=== PATIENT | male | born 1970 | race Caucasian/White ===

== ENCOUNTER 2018-11-10 14:20 | Emergency (ER) | payer BC ==
[~2018-11-10] VITALS: Ht 193 cm; Wt 137.7 kg
[2018-11-10 14:20] VITALS: BP 145/87
--- NOTE | 2018-11-10 15:54 | PHYS DOC ---
Past History Past Medical History: No Pertinent History Past Surgical History: No Surgical History Alcohol Use: None Drug Use: None Adult General Chief Complaint Chief Complaint: LACERATION/AVULSION [facility] HPI 48-year-old male presents with laceration of the left ring finger. The patient was cutting up a knife when he gets like at the end of his left finger off. There is a 1 cm x 1 cm area of skin missing off the tip of that finger. He was unable to get the bleeding to stop at home sick in the emergency room. He denies any other injuries or complaints. His tetanus is not up-to-date. Review of Systems Review of Systems Constitutional: Denies fever or chills [] Eyes: Denies change in visual acuity, redness, or eye pain [] HENT: Denies nasal congestion or sore throat [] Respiratory: Denies cough or shortness of breath [] Cardiovascular: No additional information not addressed in HPI [] GI: Denies abdominal pain, nausea, vomiting, bloody stools or diarrhea [] : Denies dysuria or hematuria [] Musculoskeletal: Denies back pain or joint pain [] Integument: Laceration of the left finger[] Neurologic: Denies headache, focal weakness or sensory changes [] Endocrine: Denies polyuria or polydipsia [] All other systems were reviewed and found to be within normal limits, except as documented in this note. Allergies Allergies Allergies Coded Allergies Type Severity Reaction Last Updated Verified No Known Drug Allergies 11/10/18 No Physical Exam Physical Exam Constitutional: Well developed, well nourished, no acute distress, non-toxic appearance. [] HENT: Normocephalic, atraumatic, bilateral external ears normal, oropharynx moist, no oral exudates, nose normal. [] Eyes: PERRLA, EOMI, conjunctiva normal, no discharge. [] Neck: Normal range of motion, no tenderness, supple, no stridor. [] Cardiovascular:Heart rate regular rhythm, no murmur [] Lungs & Thorax: Bilateral breath sounds clear to auscultation [] Abdomen: Bowel sounds normal, soft, no tenderness, no masses, no pulsatile masses. [] Skin: One centimeter round laceration with complete avulsion of the skin[] Back: No tenderness, no CVA tenderness. [] Extremities: No tenderness, no cyanosis, no clubbing, ROM intact, no edema. [] Neurologic: Alert and oriented X 3, normal motor function, normal sensory function, no focal deficits noted. [] Psychologic: Affect normal, judgement normal, mood normal. [] Current Patient Data Vital Signs Vital Signs Date Time Temp Pulse Resp B/P (MAP) Pulse Ox O2 Delivery O2 Flow Rate FiO2 11/10/18 14:20 98.4 90 18 100 Room Air EKG EKG [] Radiology/Procedures Radiology/Procedures [] Course & Med Decision Making Course & Med Decision Making Pertinent Labs and Imaging studies reviewed. (See chart for details) The patient had 2 small arterial bleeders. I was able to cauterize these with silver nitrate. There is not enough skin for a complete closure. The bone is not exposed. This will have to heal by secondary intention. We have covered the wound with a nonadherent dressing and a puffy gauze. The patient has been given a tetanus shot. He is stable for discharge at this time. [] Dragon Disclaimer Dragon Disclaimer This electronic medical record was generated, in whole or in part, using a voice recognition dictation system. Departure Departure: Impression: Primary Impression: Laceration of left ring finger Disposition: HOME, SELF-CARE Condition: STABLE Referrals: PCP,NO (PCP) Patient Instructions: Deep Skin Avulsion Scripts Cephalexin (KEFLEX) 500 Mg Capsule 1 CAP PO BID for laceration, #14 CAP Prov: NAVEEN MCFARLAND DO 11/10/18 Hydrocodone Bit/Acetaminophen (NORCO 5-325 TABLET) 1 Each Tablet 1 TAB PO PRN Q6HRS PRN for PAIN, #10 TAB 0 Refills Prov: NAVEEN MCFARLAND DO 11/10/18 Problem Qualifiers Primary Impression: Laceration of left ring finger Encounter type: initial encounter Damage to nail status: without damage Foreign body presence: without foreign body Qualified Codes: S61.215A - Laceration without foreign body of left ring finger without damage to nail, initial encounter NAVEEN MCFARLAND DO Nov 10, 2018 15:54
[2018-11-10] MEDS ORDERED: HYDR-3165 PO (16:27)
[2018-11-10] MEDS ORDERED: CEPH-264 PO (16:27)
[2018-11-10] MEDS ORDERED: DIPHTH,PERTUSS(ACELL),TET TOX 0.5 ML DISP.SYRIN. VAX IM ONE (17:00)
== END 2018-11-10 16:40 | disposition home or self-care (01) ==
LOC: ER 14:20
DX: S61.215A Laceration without foreign body of left ring finger without damage to nail, initial encounter (principal); W26.0XXA Contact with knife, initial encounter; Y93.89 Activity, other specified; Y92.89 Other specified places as the place of occurrence of the external cause; Y99.8 Other external cause status
CPT/HCPCS: 90471; 90715; 99283-25